=== PATIENT | female | born 1980 | race Two or more races ===

== ENCOUNTER 2022-08-25 12:54 | Emergency (ER) | payer OTHER ==
[~2022-08-25] VITALS: Ht 144.8 cm; Wt 63.5 kg
== END 2022-08-25 17:04 | disposition home or self-care (01) ==
LOC: ER 12:54
DX: S51.811A Laceration without foreign body of right forearm, initial encounter (principal); W18.30XA Fall on same level, unspecified, initial encounter; Y93.89 Activity, other specified; Y92.012 Bathroom of single-family (private) house as the place of occurrence of the external cause; Y99.9 Unspecified external cause status

== ENCOUNTER 2022-09-03 15:42 | Emergency (ER) | payer OTHER ==
[~2022-09-03] VITALS: Ht 144.8 cm; Wt 55.8 kg
== END 2022-09-03 17:55 | disposition home or self-care (01) ==
LOC: ER 15:42
DX: Z48.02 Encounter for removal of sutures (principal)